=== PATIENT | female | born 1990 | race African-American/Black ===

== ENCOUNTER 2018-06-01 19:49 | Emergency (ER) | payer OTHER ==
[~2018-06-01] VITALS: Ht 167.6 cm; Wt 99.8 kg
[2018-06-01 20:38] LABS: ABSOLUTE EOSINOPHILS 0.2 thou/uL (0.0-0.7); ABSOLUTE LYMPHOCYTES 3.4 thou/uL (0.8-5.3); ABSOLUTE MONOCYTES 0.5 thou/uL (0.0-1.2); ABSOLUTE NEUTROPHILS 4.8 thou/uL (1.6-8.1); BASOPHILS 0.6 %; EOSINOPHILS 2.7 %; HEMATOCRIT 34.3 % (37.0-47.0); HEMOGLOBIN 11.7 gm/dL (12.0-15.0); LYMPHOCYTES 37.8 %; MCH 30.8 pg (26.0-34.0); MCHC 34.3 g/dL (28.0-37.0); MONOCYTES 5.9 %; MPV 8.1 fl. (7.2-11.1); NUCLEATED RBCS 0 /100WBC; PLATELET COUNT* 309 thou/uL (150-400); RBC 3.81 mil/uL (4.20-5.00); RDW-CV 13.8 % (10.5-14.5)
[2018-06-01 20:50] LABS: APTT 30.3 Seconds (25.0-31.3); PROTIME 10.6 Seconds (9.20-11.50)
[2018-06-01 21:05] LABS: ALBUMIN 3.4 g/dL (3.4-5.0); ALKALINE PHOSPHATASE 54 U/L (46-116); ANION GAP 9 mmol/L (7-16); BUN 10 mg/dL (7-18); CALCIUM 8.6 mg/dL (8.5-10.1); CHLORIDE 106 mmol/L (98-107); CO2 27 mmol/L (21-32); CREATININE 1.1 mg/dL (0.6-1.3); GLUCOSE 98 mg/dL (70-99); POTASSIUM 3.5 mmol/L (3.5-5.1); SGOT 15 U/L (15-37); SGPT 19 U/L (30-65); SODIUM 142 mmol/L (136-145); TOTAL BILIRUBIN 0.1 mg/dL (<0.1-1.0); TOTAL PROTEIN 7.4 g/dL (6.4-8.2); TROPONIN-I LEVEL <0.06 ng/mL (<0.06)
[2018-06-01 21:47] VITALS: BP 132/88
--- NOTE | 2018-06-02 17:05 | EKG ---
[place] [address] ELECTROCARDIOGRAM REPORT Name: KAYLAH HEAD Room: [facility]#: [id number] Admission: 06/01/18 Attend Phys: Discharge: 06/01/18 Date of : 86 Report #: [id number] THIS REPORT FOR: //name// [facility] ED Test Date: 2018-06-01 Test Time: 21:22:16 Pat Name: KAYLAH HEAD Department: Room: Gender: F [employer]: NAE : 1990 Requested By: Cristopher Puckett Order Number: [id number] MD: Fortunato Kumar Measurements Intervals [place] Rate: 67 P: 13 LA: 142 QRS: 23 QRSD: 97 T: -31 QT: 389 QTc: 411 Interpretive Statements Sinus rhythm Nonspecific T abnormalities, inferior leads No previous ECG available for comparison Electronically Signed On 06-02-2018 17:05:09 CDT by Fortunato Kumar [email or web address] <ELECTRONICALLY SIGNED> By: Fortunato Kumar MD, [facility] 06/02/18 1705 212 21 Fortunato Kumar MD, FACC /EPI
== END 2018-06-01 21:45 | disposition home or self-care (01) ==
LOC: M.ERS 19:49
PROVIDERS: Family Medicine
DX: G45.9 Transient cerebral ischemic attack, unspecified (principal); Z90.710 Acquired absence of both cervix and uterus